=== PATIENT | male | born 1995 ===

== ENCOUNTER 2017-03-28 02:17 | Emergency (ER) | payer SELFPAY ==
[2017-03-28 02:26] VITALS: O2SAT 98
--- NOTE | 2017-03-28 02:57 | ED PDOC ---
HPI: Psych/Substance Abuse Time Seen by Provider: 03/28/17 02:19 Chief Complaint (Nursing): Psychiatric Evaluation Chief Complaint (Provider): Psychiatric evaluation ED Caveat: Intoxicated History Per: EMS History/Exam Limitations: intoxication Additional Complaint(s): The patient is a 22yo male, brought to the ED for evaluation due to expressing suicidal ideation. Patient is intoxicated and is an unreliable narrator; a full HPI and ROS is unavailable. Patient reports he wishes to "jump off a ferry". No medical complaints. Past Medical History Reviewed: Historical Data, Nursing Documentation, Vital Signs Vital Signs: Last Vital Signs Temp 98.7 F 03/28/17 02:24 Pulse 127 H 03/28/17 02:24 Resp 16 03/28/17 02:24 BP 159/67 H 03/28/17 02:24 Pulse Ox 98 03/28/17 02:24 - Medical History PMH: No Chronic Diseases - Surgical History Surgical History: Appendectomy - Family History Family History: States: No Known Family Hx - Home Medications Home Medications: Ambulatory Orders Medication Instructions Recorded Unobtainable 03/28/17 - Allergies Allergies/Adverse Reactions: Allergies Allergy/AdvReac Type Severity Reaction Status Date / Time PORK Allergy RASH Verified 03/28/17 02:23 Review of Systems Review Of Systems: ROS cannot be obtained secondary to pt's inabilty to answer questions. Physical Exam - Reviewed Nursing Documentation Reviewed: Yes Vital Signs Reviewed: Yes - Physical Exam Appears: Positive for: No Acute Distress Head Exam: Positive for: ATRAUMATIC, NORMAL INSPECTION, NORMOCEPHALIC Skin: Positive for: Warm Eye Exam: Positive for: Normal appearance Neck: Positive for: Supple Cardiovascular/Chest: Positive for: Regular Rate, Rhythm Respiratory: Positive for: Normal Breath Sounds. Negative for: Respiratory Distress Gastrointestinal/Abdominal: Positive for: Soft. Negative for: Tenderness Back: Positive for: Normal Inspection Extremity: Positive for: Normal ROM. Negative for: Deformity, Swelling Neurologic/Psych: Positive for: Mood/Affect (flat affect), Gait (unsteady). Negative for: Motor/Sensory Deficits - Laboratory Results Result Diagrams: 03/28/17 02:55 03/28/17 02:55 - ECG O2 Sat by Pulse Oximetry: 98 (RA) Pulse Ox Interpretation: Normal Medical Decision Making Medical Decision Making: Time: 218 Impression: Suicidal ideation, EtOH Plan: -- Patient is combative, placed in 4-point restraints. -- Labs -- Crisis Reassess Time: 0700 --Patient was endorsed to Dr. Jamel Hay III. Pending sobriety, crisis evaluation and re-evaluation. Scribe Attestation: Documented by Ying Mccormick acting as a scribe for Devendra Schaffer MD. Provider Attestation: All medical record entries made by the Scribe were at my direction and personally dictated by me. I have reviewed the chart and agree that the record accurately reflects my personal performance of the history, physical exam, medical decision making, and the department course for this patient. I have also personally directed, reviewed, and agree with the discharge instructions and disposition. ED OBSERVATION Date of observation admission: 03/28/17 Time of observation admission: 02:32 - Progress Note Progress Note: 03/28/17 02:32 Patient placed in 4-point restraints due to risk of self harm. 03/28/17 04:30 Resting in room, no acute distress. 03/28/17 05:58 Resting in room, no acute distress. 03/28/17 07:00 Patient signed out to Dr. Hay pending sobriety and crisis evaluation. Disposition - Clinical Impression Clinical Impression: Intoxication - Patient ED Disposition Is Patient to be Admitted: Transfer of Care - Disposition [facility] Disposition: Transfer of Care Disposition Time: 02:32 Condition: STABLE Additional Instructions: Recommend alcohol in moderation only. Return to ER for any concern for self. Instructions: Alcohol Intoxication (ED), Suicide Prevention for Adults (ED) Print Language: KOREAN Patient Signed Over To: Jamel Hay III Handoff Comments: Pending sobriety and crisis evaluation.
[2017-03-28 03:08] LABS: BASO # 0.1 K/uL (0.0-0.2); BASO % 0.8 % (0.0-2.0); EOS % 0.2 % (0.0-4.0); HEMATOCRIT 43.6 % (35.0-51.0); LYMPH # 1.7 K/uL (1.0-4.3); LYMPH % 20.5 % (20.0-40.0); MEAN CELL VOLUME 87.7 fl (80.0-94.0); MEAN CORPUSCULAR HEMOGLOBIN 30.8 pg (27.0-31.0); MEAN CORPUSCULAR HGB CONC 35.1 g/dL (33.0-37.0); MEAN PLATELET VOLUME 7.7 fl (7.2-11.7); MONO # 0.4 K/uL (0.0-0.8); MONO % 4.4 % (0.0-10.0); NEUT # 6.2 K/uL (1.8-7.0); NEUT % 74.1 % (50.0-75.0); NRBC % 0.5 % (0.0-0.0); RED CELL DISTRIBUTION WIDTH 13.3 % (11.5-14.5); WHITE BLOOD COUNT 8.4 K/uL (4.8-10.8)
[2017-03-28 03:23] LABS: ALB/GLOB RATIO 1.4 (1.0-2.1); ALCOHOL SERUM 263 mg/dl (0-10); ALKALINE PHOSPHATASE 57 U/L (38-126); ALT/SGPT 33 U/L (21-72); AST/SGOT 33 U/L (17-59); BILIRUBIN,TOTAL 0.4 mg/dl (0.2-1.3); BLOOD UREA NITROGEN 8 mg/dl (9-20); CALCIUM 9.3 mg/dL (8.4-10.2); CARBON DIOXIDE 19 mmol/L (22-30); CHLORIDE 108 mmol/L (98-107); GFR AFRICAN-AMERICAN > 60; GLUCOSE,RANDOM 98 mg/dL (75-110); POTASSIUM 3.6 MMOL/L (3.6-5.0); SODIUM 151 mmol/l (132-148); TOTAL PROTEIN 7.9 G/DL (6.3-8.2)
[2017-03-28 03:23] LABS: URINE BILIRUBIN NEGATIVE (NEGATIVE); URINE BLOOD NEGATIVE (NEGATIVE); URINE COLOR COLORLESS (YELLOW); URINE GLUCOSE (UA) NEG (Normal); URINE KETONE NEGATIVE (NEGATIVE); URINE LEUKOCYTE ESTERASE NEG Leu/uL (Negative); URINE PROTEIN NEGATIVE (NEGATIVE); URINE UROBILINOGEN 0.2-1.0 mg/dL (0.2-1.0); WBC URINE < 1 /hpf (0-5)
--- NOTE | 2017-03-28 07:05 | ED PDOC ---
- Laboratory Results Result Diagrams: 03/28/17 02:55 03/28/17 02:55 - ECG O2 Sat by Pulse Oximetry: 98 (RA) Pulse Ox Interpretation: Normal Medical Decision Making Medical Decision Making: Time: 0700 --Patient was endorsed to provider by Dr. Devendra Schaffer. Pending sobriety , crisis evaluation and re-evaluation. --Patient is resting comfortably with stable vital signs. Time: 0810 --Upon re-evaluation, patient is clinically sober, medically stable, cleared from crisis and requires no further treatment in the ED at this time. Patient will be discharged home. Counseling was provided and all questions were answered regarding diagnosis. There is agreement to discharge plan. Return if symptoms persist or worsen. Clinical Impression: Intoxication Scribe Attestation: Documented by Shabnam Moses, acting as a scribe for Jamel Hay III, DO. Provider Attestation: All medical record entries made by the Scribe were at my direction and personally dictated by me. I have reviewed the chart and agree that the record accurately reflects my personal performance of the history, physical exam, medical decision making, and the department course for this patient. I have also personally directed, reviewed, and agree with the discharge instructions and disposition. Disposition Counseled Patient/Family Regarding: Diagnosis - Clinical Impression Clinical Impression: Intoxication - POA Present On Arrival: None - Disposition Referrals: [facility] [Outside] Disposition: Routine/Home Disposition Time: 08:10 Condition: STABLE Additional Instructions: Recommend alcohol in moderation only. Return to ER for any concern for self. Instructions: Alcohol Intoxication (ED), Suicide Prevention for Adults (ED) Print Language: [id number]
[2017-03-28 08:03] VITALS: RESP 19
[2017-03-28 10:31] VITALS: BP 120/78; PULSE 78; TEMP 97
== END 2017-03-28 10:32 | disposition home or self-care (01) ==
LOC: H.ER 02:17
DX: F10.129 Alcohol abuse with intoxication, unspecified (principal); Y90.8 Blood alcohol level of 240 mg/100 ml or more
CPT/HCPCS: 80053; 81003; 82948; 85025; 96372; 99284; G0480; J1630; J2060